=== PATIENT | female | born 1935 | race African-American/Black ===

== ENCOUNTER 2022-03-07 10:11 | Inpatient (IN) | payer BC, MEDICARE, OTHER ==
[~2022-03-07] VITALS: Ht 172.7 cm; Wt 88.0 kg
[~2022-03-07 10:11] MED LIST: AMLODIPINE PO; LOSA50TA3 PO; METF-414 PO; NEXIUM
[2022-03-07] MEDS ORDERED: MEMA10TA55 PO (10:21)
[2022-03-07] MEDS ORDERED: ISOS60TA76 PO (10:22)
[2022-03-07] MEDS ORDERED: RIVA1PAT9 TD (10:22)
[2022-03-07] MEDS ORDERED: HYDR25TA PO (10:22)
[2022-03-07] MEDS ORDERED: NITR0.4T49 SL (10:23)
[2022-03-07] MEDS ORDERED: FOLI0.8T23 MT (10:23)
[2022-03-07] MEDS ORDERED: SODIUM CHLORIDE 0.9% 1,000 ML IV ONE (11:30)
[2022-03-07 12:00] LABS: CHLORIDE 110 mEq/L (98-107)
[2022-03-07 12:02] LABS: INR 1.1; PROTHROMBIN TIME 11.4 sec (9.6-11.0)
[2022-03-07 12:38] LABS: HEMATOCRIT. 28.7 % (36.0-48.0); HEMOGLOBIN. 9.5 g/dL (12.0-16.0); MEAN CORPUSCULAR HEMOGLOBIN 28.6 pg (28.0-32.0); MEAN CORPUSCULAR VOLUME 86.5 fL (81.0-99.0); MEAN PLATELET VOLUME 8.2 fl (7.4-10.4); PLATELET 174 x1000/uL (130-400); RED BLOOD CELL COUNT 3.32 mill/uL (4.2-5.4); RED CELL DISTRIBUTION WIDTH 15.6 % (11.6-14.6)
[2022-03-07 13:27] LABS: PLATELET ESTIMATE NORMAL
[2022-03-07 19:13] LABS: CLARITY URINE CLEAR (CLEAR); COLOR URINE YELLOW (YELLOW); KETONES URINE NEGATIVE (NEGATIVE); LEUKOCYTE ESTERASE URINE NEGATIVE (NEGATIVE); NITRITE URINE NEGATIVE (NEGATIVE); OCCULT BLOOD URINE NEGATIVE (NEGATIVE); PH URINE 5.5 (4.5-8.0); PROTEIN URINE 2+ (NEGATIVE); SPECIFIC GRAVITY URINE 1.012 (1.005-1.030); UROBILINOGEN URINE 0.2 E.U./dL (0.2-1.0)
[2022-03-07 20:00] VITALS: BP 153/46
[2022-03-07] MEDS ORDERED: ACETAMINOPHEN 325MG TABLET PO PRN ×2 (20:00)
[2022-03-07] MEDS ORDERED: ONDANSETRON HCL 4MG/2ML INJ IV PRN (20:00)
[2022-03-07] MEDS ORDERED: DOCUSATE SODIUM 100MG CAPSULE PO PRN (20:00)
[2022-03-07] MEDS ORDERED: MAGNESIUM/ALUMINUM HYDROXIDE/SIMETHICONE 30ML UDC PO PRN (20:00)
[2022-03-07] MEDS ORDERED: IPRATROPIUM/ALBUTEROL 0.5-3(2.5)MG/3ML NEB HHN PRN (20:00)
[2022-03-07] MEDS ORDERED: GUAIFENESIN 200MG/10ML SUGAR FREE UDC PO PRN (20:00)
[2022-03-07 20:28] VITALS: BP 132/46
[2022-03-07] MEDS ORDERED: IPRATROPIUM BROMIDE (0.02%) 0.5MG/2.5ML NEB HHN PRN (20:30)
[2022-03-07] MEDS ORDERED: ALBUTEROL (0.083%) 2.5MG/3ML NEB HHN PRN (20:30)
[2022-03-07] MEDS: ENOXAPARIN 30MG/0.3ML SYR SUBCUT SCH (22:39)
[2022-03-08] VITALS: BP 168/57
[2022-03-08] MEDS ORDERED: AMLO10TA80 PO (00:12)
[2022-03-08] MEDS ORDERED: LOSA100T32 PO (00:13)
[2022-03-08] MEDS ORDERED: ISOS60TA76 PO (00:14)
[2022-03-08] MEDS ORDERED: HYDR25TA PO (00:17)
[2022-03-08] MEDS ORDERED: MEMA10TA55 PO (00:19)
[2022-03-08] MEDS: CLONIDINE 0.1MG TABLET PO PRN ×2 (00:33→08:58)
[2022-03-08] MEDS ORDERED: RIVA1PAT11 TD (00:40)
[2022-03-08] MEDS ORDERED: FOLI1TAB87 PO (00:46)
[2022-03-08] MEDS ORDERED: NITR0.4T49 SL (00:46)
[2022-03-08] MEDS ORDERED: METO25TA6 PO (00:46)
[2022-03-08 04:00] VITALS: BP 110/65
[2022-03-08 06:33] LABS: HEMATOCRIT. 27.7 % (36.0-48.0); HEMOGLOBIN. 9.5 g/dL (12.0-16.0); MEAN CORPUSCULAR VOLUME 85.1 fL (81.0-99.0); MEAN PLATELET VOLUME 8.1 fl (7.4-10.4); PLATELET 156 x1000/uL (130-400); RED BLOOD CELL COUNT 3.26 mill/uL (4.2-5.4); RED CELL DISTRIBUTION WIDTH 15.5 % (11.6-14.6)
[2022-03-08 07:11] LABS: VITAMIN B12 SERUM 573 pg/mL (211-911)
[2022-03-08 07:17] LABS: FOLIC ACID (FOLATE) SERUM > 20.00 ng/mL (>5.38)
[2022-03-08 07:55] LABS: FERRITIN 291 ng/mL (10-291)
[2022-03-08 08:00] VITALS: BP 200/56
[2022-03-08 08:58] LABS: CHLORIDE 110 mEq/L (98-107)
[2022-03-08 09:22] LABS: HDL CHOLESTEROL 46 mg/dL (40-59); LDL CHOLESTEROL 72 mg/dL (5-100); T4 FREE 1.07 ng/dL (0.76-1.46); TOTAL IRON BINDING CAPACITY 212 ug/dL (250-450)
[2022-03-08 12:00] VITALS: BP_SYST 133; BP_SYST 145; BP_DIAS 58; BP_DIAS 80
[2022-03-08] MEDS: SODIUM CHLORIDE 0.45% 1,000 ML IV SCH (13:02)
[2022-03-08] MEDS: MEMANTINE HCL 10MG TABLET PO SCH ×2 (13:03→18:04)
[2022-03-08] MEDS: LOSARTAN POTASSIUM 100 MG TABLET PO SCH (13:03)
[2022-03-08] MEDS: HYDRALAZINE 20MG/ML VIAL IV SCH ×3 (13:03→23:57)
[2022-03-08] MEDS: AMLODIPINE 10MG TABLET PO SCH (13:03)
[2022-03-08] MEDS: ISOSORBIDE MONONITRATE 60MG TABLET SR 24HR PO SCH (13:04)
[2022-03-08 16:00] VITALS: BP 131/57
[2022-03-08 17:00] LABS: PLATELET ESTIMATE NORMAL
[2022-03-08] MEDS ORDERED: METOPROLOL TARTRATE 25MG TABLET PO SCH (17:00)
[2022-03-08 20:00] VITALS: BP 136/41
[2022-03-08] MEDS: ENOXAPARIN 30MG/0.3ML SYR SUBCUT SCH (20:45)
[2022-03-09] VITALS: BP 121/46
[2022-03-09 04:00] VITALS: BP 129/66
[2022-03-09] MEDS: HYDRALAZINE 20MG/ML VIAL IV SCH ×2 (06:00→12:00)
[2022-03-09] MEDS: SODIUM CHLORIDE 0.45% 1,000 ML IV SCH (06:48)
[2022-03-09 08:00] VITALS: BP 136/49
[2022-03-09] MEDS ORDERED: RIVASTIGMINE 4.6 MG/24 HR TD PATCH TD SCH (09:00)
[2022-03-09 09:14] LABS: HEMATOCRIT. 27.8 % (36.0-48.0); HEMOGLOBIN. 9.5 g/dL (12.0-16.0); MEAN CORPUSCULAR HEMOGLOBIN 29.2 pg (28.0-32.0); MEAN CORPUSCULAR VOLUME 85.4 fL (81.0-99.0); MEAN PLATELET VOLUME 8.6 fl (7.4-10.4); PLATELET 156 x1000/uL (130-400); RED BLOOD CELL COUNT 3.26 mill/uL (4.2-5.4); RED CELL DISTRIBUTION WIDTH 15.3 % (11.6-14.6)
[2022-03-09] MEDS: LOSARTAN POTASSIUM 100 MG TABLET PO SCH (09:17)
[2022-03-09] MEDS: ISOSORBIDE MONONITRATE 60MG TABLET SR 24HR PO SCH (09:17)
[2022-03-09] MEDS: MEMANTINE HCL 10MG TABLET PO SCH (09:18)
[2022-03-09] MEDS: AMLODIPINE 10MG TABLET PO SCH (09:18)
[2022-03-09 09:36] LABS: PHOSPHORUS 3.1 mg/dL (2.5-4.9)
[2022-03-09] MEDS ORDERED: MAGNESIUM OXIDE 400MG TABLET PO NR (09:45)
[2022-03-09 11:00] VITALS: BP 136/49
[2022-03-09 12:00] VITALS: BP 115/52
[2022-03-09 19:45] LABS: PLATELET ESTIMATE NORMAL
[2022-03-10 07:08] LABS: *CREATININE RANDOM URINE 60.1 mg/dL (Not Estab.); MICROALBUMIN RANDOM URINE 781.3 ug/mL (Not Estab.)
== END 2022-03-09 15:15 | disposition home or self-care (01) | DRG 871 ==
LOC: ER 10:11 → 7EST 19:01
PROVIDERS: ADMIT Hospitalist; ATTEND Hospitalist
DX: A41.89 Other specified sepsis (principal); G93.41 Metabolic encephalopathy; J12.82 Pneumonia due to coronavirus disease 2019; U07.1 COVID-19; N17.9 Acute kidney failure, unspecified; I82.501 Chronic embolism and thrombosis of unspecified deep veins of right lower extremity; J44.0 Chronic obstructive pulmonary disease with (acute) lower respiratory infection; D64.9 Anemia, unspecified; I10 Essential (primary) hypertension; J44.9 Chronic obstructive pulmonary disease, unspecified; K21.9 Gastro-esophageal reflux disease without esophagitis; E11.65 Type 2 diabetes mellitus with hyperglycemia; E83.42 Hypomagnesemia; F02.80 Dementia in other diseases classified elsewhere, unspecified severity, without behavioral disturbance, psychotic disturbance, mood disturbance, and anxiety; G30.9 Alzheimer's disease, unspecified; Z85.038 Personal history of other malignant neoplasm of large intestine; Z79.899 Other long term (current) drug therapy; Z87.891 Personal history of nicotine dependence; Z90.710 Acquired absence of both cervix and uterus; Z80.3 Family history of malignant neoplasm of breast
CPT/HCPCS: 36415; 71045; 76770; 80048; 80053; 80061; 81003; 82043; 82570; 82607; 82728; 82746; 83036; 83540; 83550; 83605; 83735; 83930; 83935; 84100; 84145; 84300; 84439; 84443; 84481; 84484; 85025; 86850; 86900; 87426; 93880; 93970; 97166; 99285; C9803; J0360; J1650; J7030

== ENCOUNTER 2022-05-30 16:04 | Emergency (ER) | payer MEDICARE ==
[~2022-05-30] VITALS: Ht 170.2 cm; Wt 79.0 kg
[~2022-05-30 16:04] MED LIST changes: -AMLODIPINE PO; -LOSA50TA3 PO; +MEMA5TAB42 MT; -METF-414 PO; -NEXIUM; +RIVA1PAT3 TD
[2022-05-30] MEDS ORDERED: ACETAMINOPHEN 325MG TABLET PO ONE (19:15)
[2022-05-30 22:00] VITALS: BP 104/70
== END 2022-05-30 22:03 | disposition home or self-care (01) ==
LOC: ER 16:04
DX: R55 Syncope and collapse (principal); W18.39XA Other fall on same level, initial encounter; Y93.89 Activity, other specified; Y92.89 Other specified places as the place of occurrence of the external cause; Y99.8 Other external cause status; J44.9 Chronic obstructive pulmonary disease, unspecified; F03.90 Unspecified dementia, unspecified severity, without behavioral disturbance, psychotic disturbance, mood disturbance, and anxiety; I95.9 Hypotension, unspecified
CPT/HCPCS: 71045; 93005; 99284

== ENCOUNTER 2024-10-28 09:44 | Inpatient (IN) | payer MEDICARE, MEDICAID ==
[~2024-10-28] VITALS: Ht 170.2 cm; Wt 89.4 kg
[~2024-10-28 09:44] MED LIST changes: +MEMA5TAB16 MT; -MEMA5TAB42 MT
[2024-10-28 09:46] VITALS: O2SAT 96
[2024-10-28 10:32] LABS: BASOPHILS % 0.1 % (0.0-2.0); EOSINOPHILS % 4.7 % (0.0-5.0); HEMATOCRIT. 26.8 % (36.0-48.0); HEMOGLOBIN. 8.9 g/dL (12.0-16.0); LYMPHOCYTES % 8.3 % (20.0-50.0); MEAN PLATELET VOLUME 8.5 fl (7.4-10.4); MONOCYTES % 4.7 % (2.0-8.0); NEUTROPHILS % 82.2 % (40.0-76.0); PLATELET 180 x1000/uL (130-400); RED BLOOD CELL COUNT 3.04 mill/uL (4.2-5.4); RED CELL DISTRIBUTION WIDTH 16.2 % (11.6-14.6)
[2024-10-28 10:47] LABS: CREATININE 2.0 mg/dL (0.6-1.0); UREA NITROGEN BLOOD 23.0 mg/dL (9-23)
[2024-10-28] MEDS: ACETAMINOPHEN 1000MG/100ML 100 ML IV ONE (12:26)
[2024-10-28] MEDS ORDERED: ACETAMINOPHEN 650MG SUPP PR PRN (13:15)
[2024-10-28] MEDS ORDERED: IPRATROPIUM/ALBUTEROL 0.5-3(2.5)MG/3ML NEB HHN PRN (13:15)
[2024-10-28] MEDS ORDERED: ACETAMINOPHEN 650MG/20.3ML UDC GT PRN (13:15)
[2024-10-28] MEDS ORDERED: PANTOPRAZOLE SODIUM 40 MG/VIAL IV SCH (13:25)
[2024-10-28] MEDS: HYDRALAZINE 20MG/ML VIAL IV SCH (13:45)
[2024-10-28] MEDS ORDERED: MORPHINE SULFATE 4 MG/ML INJ (FOR IV/IM USE) IV PRN (14:00)
[2024-10-28 14:37] LABS: PHOSPHORUS 2.8 mg/dL (2.5-4.9)
[2024-10-28] MEDS ORDERED: FLUO15CR35 TP (15:44)
[2024-10-28] MEDS ORDERED: RIVA3CAP PO (15:44)
[2024-10-28] MEDS ORDERED: LOSA50TA41 PO (15:44)
[2024-10-28] MEDS ORDERED: ASPI-1497 PO (15:44)
[2024-10-28] MEDS ORDERED: FERR-71 MT (15:44)
[2024-10-28] MEDS ORDERED: MEMA5TAB16 PO (15:44)
[2024-10-28] MEDS ORDERED: MELA5TAB19 PO (15:44)
[2024-10-28] MEDS ORDERED: QUET25TA PO (15:44)
[2024-10-28] MEDS ORDERED: TC1C15 TP (15:44)
[2024-10-28] MEDS ORDERED: RIVA3CAP MT (15:44)
[2024-10-28] MEDS ORDERED: DIVA125T2 PO (15:44)
[2024-10-28 15:45] VITALS: BP 210/85; PULSE 89; RESP 20; TEMP 36.6404
[2024-10-28 16:00] VITALS: BP 181/89; PULSE 81; RESP 20; TEMP 36.4; O2SAT 98
[2024-10-28] MEDS ORDERED: NYST15CR31 TP (16:04)
[2024-10-28] MEDS: SODIUM CHLORIDE 0.9% 1,000 ML IV ONE (16:28)
[2024-10-28] MEDS: CLONIDINE 0.1MG TABLET PO PRN (16:28)
[2024-10-28] MEDS ORDERED: OLANZAPINE 2.5MG TABLET PO SCH (17:45)
[2024-10-28] MEDS: FERROUS SULFATE 300MG/5ML UDC PO SCH (18:03)
[2024-10-28] MEDS: AMLODIPINE 5MG TABLET PO SCH (18:03)
[2024-10-28] MEDS: MAGNESIUM 2 G PREMIX 50 ML IV SCH (18:04)
[2024-10-28 20:03] VITALS: BP 200/100; PULSE 70; RESP 20; TEMP 36.7; O2SAT 97
[2024-10-28] MEDS: HYDRALAZINE 20MG/ML VIAL IV NR (20:35)
[2024-10-28] MEDS: MEMANTINE HCL 5MG TABLET PO SCH (20:35)
[2024-10-28] MEDS: OLANZAPINE 2.5MG TABLET PO PRN (21:05)
[2024-10-28] MEDS: NIFEDIPINE XL 90MG TAB PO NR (22:00)
[2024-10-28 22:35] LABS: CREATININE 1.8 mg/dL (0.6-1.0); UREA NITROGEN BLOOD 20.0 mg/dL (9-23)
[2024-10-28 22:59] LABS: CLARITY URINE CLEAR (CLEAR); COLOR URINE YELLOW (YELLOW); GLUCOSE URINE NEGATIVE (NEGATIVE); KETONES URINE NEGATIVE (NEGATIVE); LEUKOCYTE ESTERASE URINE NEGATIVE (NEGATIVE); NITRITE URINE NEGATIVE (NEGATIVE); OCCULT BLOOD URINE TRACE (NEGATIVE); PH URINE 7.5 (4.5-8.0); PROTEIN URINE 3+ (NEGATIVE); SPECIFIC GRAVITY URINE 1.011 (1.005-1.030); UROBILINOGEN URINE 1.0 E.U./dL (0.2-1.0)
[2024-10-28 23:00] LABS: SODIUM URINE RANDOM 149.0 mEq/L
[2024-10-28 23:08] LABS: CREATININE URINE RANDOM 38.9 mg/dL
[2024-10-28 23:09] LABS: *AMPHETAMINES SCREEN URINE NEGATIVE (NEGATIVE); *BARBITURATES SCREEN URINE NEGATIVE (NEGATIVE); *BENZODIAZEPINES SCREEN URINE NEGATIVE (NEGATIVE); *COCAINE SCREEN URINE NEGATIVE (NEGATIVE); CANNABINOID URINE SCREEN NEGATIVE (NEGATIVE); ECSTASY MDMA SCREEN URINE NEGATIVE (NEGATIVE); METHADONE URINE SCREEN NEGATIVE (NEGATIVE); OPIATES URINE SCREEN NEGATIVE (NEGATIVE); PHENCYCLIDINE URINE SCREEN NEGATIVE (NEGATIVE)
[2024-10-28] MEDS ORDERED: DEXTROSE 50% WATER 50ML SYRINGE IV PRN (23:15)
[2024-10-28 23:20] LABS: BACTERIA URINE 2+
[2024-10-28 23:21] LABS: SQUAMOUS EPITHELIAL CELL URINE FEW /lpf (RARE/1+); WBC URINE 0-2 /hpf (0-2)
[2024-10-29] VITALS: BP 150/60; PULSE 67; RESP 18; TEMP 36.7; O2SAT 97
[2024-10-29 04:00] VITALS: BP 116/59; PULSE 71; RESP 18; TEMP 36.7; O2SAT 97
[2024-10-29] MEDS: HYDRALAZINE 20MG/ML VIAL IV NR (05:57)
[2024-10-29] MEDS: INSULIN LISPRO 100 UNITS/ML SUBCUT SCH (06:06)
[2024-10-29] MEDS: BLOOD SUGAR DIAGNOSTIC STRIP TEST SCH (06:06)
[2024-10-29] MEDS: AMLODIPINE 10MG TABLET PO SCH (06:24)
[2024-10-29] MEDS ORDERED: HYDROCODONE/ACETAMINOPHEN 5/325MG TABLET PO NR (07:30)
[2024-10-29 08:00] VITALS: BP 154/50; PULSE 83; RESP 18; TEMP 37.1; O2SAT 98
[2024-10-29] MEDS: ONDANSETRON HCL 4MG/2ML INJ IV PRN (08:41)
[2024-10-29] MEDS ORDERED: AMLODIPINE 10MG TABLET PO SCH (09:00)
[2024-10-29] MEDS ORDERED: LOSARTAN 50 MG TABLET PO SCH (09:00)
[2024-10-29] MEDS ORDERED: RIVASTIGMINE 9.5 MG/24 HR TD SCH (09:00)
[2024-10-29] MEDS: FAMOTIDINE 20MG/2ML VIAL IV SCH (11:01)
[2024-10-29] MEDS: RIVASTIGMINE 9.5 MG/24 HR TD SCH (11:01)
[2024-10-29 12:00] VITALS: BP 130/44; PULSE 78; RESP 18; TEMP 36.5; O2SAT 98
[2024-10-29] MEDS: HALOPERIDOL LACTATE 5MG/ML VIAL IM PRN (12:52)
[2024-10-29] MEDS: ENOXAPARIN 40MG/0.4ML SYR SUBCUT SCH (16:10)
[2024-10-29] MEDS: MAGNESIUM 2 G PREMIX 50 ML IV SCH (16:11)
[2024-10-29] MEDS: HYDRALAZINE HCL 25MG TABLET PO SCH (16:25)
[2024-10-29 16:30] VITALS: BP 137/40; PULSE 85; RESP 18; TEMP 36.2; O2SAT 98
[2024-10-29 17:13] LABS: HEMATOCRIT. 25.2 % (36.0-48.0); HEMOGLOBIN. 8.2 g/dL (12.0-16.0); MEAN PLATELET VOLUME 8.5 fl (7.4-10.4); PLATELET 168 x1000/uL (130-400); RED BLOOD CELL COUNT 2.89 mill/uL (4.2-5.4); RED CELL DISTRIBUTION WIDTH 16.1 % (11.6-14.6)
[2024-10-29 17:29] LABS: ASPARTATE AMINOTRANSFERASE 16 IU/L (<34); BILIRUBIN DIRECT 0.2 mg/dL (<=3.0); BILIRUBIN TOTAL 0.5 mg/dL (0.1-1.0); CREATININE 2.0 mg/dL (0.6-1.0); PROTEIN TOTAL 5.9 g/dL (6.0-8.3)
[2024-10-29 17:30] LABS: LDL CHOLESTEROL 71 mg/dL (5-100); TRIGLYCERIDE 53 mg/dL (0-150); UREA NITROGEN BLOOD 22 mg/dL (9-23)
[2024-10-29 17:33] LABS: T4 FREE 1.20 ng/dL (0.89-1.76)
[2024-10-29] MEDS: FERROUS SULFATE 325MG TABLET PO SCH (17:40)
[2024-10-29 18:07] LABS: EOSINOPHILS % MANUAL 12.0 % (0.0-5.0); LYMPHOCYTES % MANUAL 7.0 % (20.0-60.0); MONOCYTES % MANUAL 2.0 % (2.0-8.0); NEUTROPHILS % MANUAL 79.0 % (45.0-75.0); PLATELET ESTIMATE NORMAL
[2024-10-29 20:00] VITALS: BP 134/58; PULSE 83; RESP 18; TEMP 36.7; O2SAT 98
[2024-10-29] MEDS: CEFTRIAXONE 1GM/50ML 50 ML IV SCH (20:36)
[2024-10-29 22:13] LABS: CREATINE KINASE MB FRACTION 0.8 ng/mL (0.5-3.6)
[2024-10-29 22:14] LABS: TROPONIN I HIGH SENSITIVITY 20 ng/L (3.0-34)
[2024-10-29 22:18] LABS: FOLIC ACID (FOLATE) SERUM 12.49 ng/mL (>5.38); VITAMIN B12 SERUM 382 pg/mL (211-911)
[2024-10-30] VITALS: BP 129/80; PULSE 78; RESP 20; TEMP 37; O2SAT 97
[2024-10-30 04:00] VITALS: BP 139/70; PULSE 78; RESP 18; TEMP 36.7; O2SAT 98
[2024-10-30 08:00] VITALS: BP 154/49; PULSE 76; RESP 18; TEMP 36.5; O2SAT 98
[2024-10-30] MEDS ORDERED: ACETAMINOPHEN 325MG TABLET PO PRN (09:45)
[2024-10-30] MEDS ORDERED: NALOXONE HCL 0.4MG/ML VIAL IV PRN (10:00)
[2024-10-30] MEDS: ACETAMINOPHEN 325MG TABLET PO PRN (10:07)
[2024-10-30 12:00] VITALS: BP 135/71; PULSE 74; RESP 18; TEMP 37.1; O2SAT 98
[2024-10-30 16:00] VITALS: BP 155/57; PULSE 72; RESP 18; TEMP 36.1; O2SAT 98
[2024-10-30 20:00] VITALS: BP 169/55; PULSE 78; RESP 18; TEMP 36.3; O2SAT 98
[2024-10-31] VITALS: BP_SYST 146; BP_SYST 174; BP_DIAS 56; BP_DIAS 63; PULSE 84; RESP 18; TEMP 36.5; O2SAT 95
[2024-10-31 04:00] VITALS: BP 106/81; PULSE 88; RESP 18; TEMP 36.5; O2SAT 96
[2024-10-31 08:00] VITALS: BP 177/55; PULSE 77; RESP 18; TEMP 36.6; O2SAT 97
[2024-10-31 10:45] LABS: PLATELET 162 x1000/uL (130-400); RED BLOOD CELL COUNT 2.88 mill/uL (4.2-5.4); RED CELL DISTRIBUTION WIDTH 15.9 % (11.6-14.6)
[2024-10-31 11:01] LABS: CREATININE 2.1 mg/dL (0.6-1.0); UREA NITROGEN BLOOD 24.0 mg/dL (9-23)
[2024-10-31 12:00] VITALS: BP 180/63; PULSE 73; RESP 20; TEMP 36.7; O2SAT 98
[2024-10-31 16:10] VITALS: BP 126/58; PULSE 92; RESP 18; TEMP 36.9; O2SAT 98
[2024-10-31 20:00] VITALS: BP 148/54; PULSE 83; RESP 18; TEMP 36.6; O2SAT 96
[2024-11-01] VITALS: BP 142/70; PULSE 75; RESP 18; TEMP 36.1; O2SAT 96
[2024-11-01 04:00] VITALS: BP 134/68; PULSE 79; RESP 18; TEMP 36.5; O2SAT 98
[2024-11-01 08:00] VITALS: BP 179/51; PULSE 70; RESP 18; TEMP 36.7; O2SAT 98
[2024-11-01 12:00] VITALS: BP 160/64; PULSE 72; RESP 18; TEMP 37.2; O2SAT 98
[2024-11-01] MEDS ORDERED: QUET25TA PO (13:15)
[2024-11-01] MEDS ORDERED: LOSA50TA41 PO (13:15)
[2024-11-01] MEDS ORDERED: MELA5TAB19 PO (13:15)
[2024-11-01] MEDS ORDERED: RIVA3CAP PO (13:15)
[2024-11-01] MEDS ORDERED: DIVA125T2 PO (13:15)
[2024-11-01] MEDS ORDERED: MEMA5TAB16 PO (13:15)
[2024-11-01] MEDS ORDERED: ASPI-1497 PO (13:15)
[2024-11-01] MEDS ORDERED: FERR-71 PO (13:15)
[2024-11-01 16:00] VITALS: BP 167/63; PULSE 75; RESP 18; TEMP 36.4; O2SAT 97
[2024-11-01 16:55] VITALS: BP 167/63; PULSE 75; TEMP 97.5
== END 2024-11-01 18:23 | disposition hospice, home (50) | DRG 914 ==
LOC: ER 09:44 → 8WST 12:23 → EDBEDREQTM 12:25 → EDBEDREQ 12:25 → ENRESERV 12:49
PROVIDERS: ADMIT Internal Medicine; ATTEND Internal Medicine
DX: S86.892A Other injury of other muscle(s) and tendon(s) at lower leg level, left leg, initial encounter (principal); N17.9 Acute kidney failure, unspecified; N39.0 Urinary tract infection, site not specified; G93.40 Encephalopathy, unspecified; I16.0 Hypertensive urgency; E83.42 Hypomagnesemia; D64.9 Anemia, unspecified; G30.9 Alzheimer's disease, unspecified; N18.30 Chronic kidney disease, stage 3 unspecified; J44.9 Chronic obstructive pulmonary disease, unspecified; F02.80 Dementia in other diseases classified elsewhere, unspecified severity, without behavioral disturbance, psychotic disturbance, mood disturbance, and anxiety; I12.9 Hypertensive chronic kidney disease with stage 1 through stage 4 chronic kidney disease, or unspecified chronic kidney disease; W18.39XA Other fall on same level, initial encounter; Y93.89 Activity, other specified; Z74.01 Bed confinement status; Y92.89 Other specified places as the place of occurrence of the external cause; Y99.8 Other external cause status
CPT/HCPCS: 36415; 73030; 73590; 76770; 80048; 80061; 80076; 80305; 81003; 82040; 82550; 82553; 82570; 82607; 82746; 82962; 83036; 83540; 83550; 83735; 83880; 84100; 84300; 84439; 84443; 84484; 85014; 85018; 85025; 85027; 97162; 97530; 99285; A4606; J0360; J0696; J1308; J1630; J1650; J1815; J2405; J3475; J0131